=== PATIENT | female | born 2005 | race Caucasian/White ===

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

== ENCOUNTER 2025-06-16 02:53 | Inpatient (IN) | payer SELFPAY ==
[2025-06-16] VITALS (59 sets, daily range): BP systolic 104–138; BP diastolic 58–98; PULSE 56–109; RESP 16–18; TEMP 36.6–37.2; BMI 28.3
[2025-06-16 01:08] LABS: Nitrazine Paper, PH Inconclusive
[2025-06-16 02:44] LABS: Hematocrit 39.7 % (36-47); Hemoglobin 13.50 g/dL (12.4-14.8); Mean Corpuscular HGB Conc 34.0 g/dL (30-55); Mean Corpuscular Hemoglobin 31.3 pg (27-33); Mean Corpuscular Volume 91.9 fl (85-98); Nucleated Red Blood Cells % 0 %; Platelet Count 165 10^3/cmm (157-399); Red Blood Count 4.32 10^6/uL (3.85-5.65); White Blood Count 8.33 10^3/uL (4.5-13.0)
[2025-06-16 03:18] LABS: HIV 1 & 2 Antigen Non-Reactive (Non-Reactiv)
[2025-06-16 03:19] LABS: Rapid Plasma Reagin Syphilis Nonreactive (Nonreactive)
[2025-06-16 03:20] LABS: Hepatitis B Surface Antigen Non-Reactive (Nonreactive)
[2025-06-16] MEDS: penicillin g potassium 5,000,000 UNIT in sodium chloride 0.9% (plus) 100 ML 100 UNIT IV (03:20)
[2025-06-16 05:00] LABS: Neisseria Gonorrhea NOT DETECTED (Negative)
[2025-06-16 05:18] LABS: PCP Screen Urine Negative (Negative)
[2025-06-16] MEDS: PENICILLIN G POTASSIUM 2,500,000 UNIT/50 ML BAG 50 UNIT IV ×3 (07:06→14:05)
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
[2025-06-16] MEDS: fentaNYL 50 mcg/mL INJ 2mL IVP (16:38)
[2025-06-16] MEDS: oxytocin 30 UNIT/500 ML BAG 600 UNIT IV (18:39)
--- NOTE | 2025-06-16 18:47 | P.PCNOB_ITS ---
Delivery Note: Date of delivery: June 16, 2025 Pre-delivery diagnoses: 20-year-old 1 at 36 weeks estima perlita gestational age presenting with spontaneous rupture of membranes Post-delivery diagnoses: Status post spontaneous vaginal delivery Procedure: Spontaneous vaginal delivery Delivering Physician: Alberto Montgomery Estimated blood loss (mL): 150 Pre-Delivery Course: The patient presented to the hospital with spontaneous rupture of membranes. Her membranes ruptured at about 9:00 PM on the day prior to delivery. She and her desire to avoid further invention or medication if possible. As result we hold off on Cytotec for several hours. They eventually agreed to have Cytotec placed. That was followed up with another Cytotec. She gradually made progress and progressed to complete without difficulty. Delivery: DELIVERY: The patient progressed to complete without difficulty. She delivered a male with a weight 2930 g And with Apgars of 8, 9. The baby was delivered from the HENRIQUE position and placed on the mother's abdomen. The cord was then clamped and cut 1 minute after delivery. A true knot was noted. There was no nuchal cord. There was no meconium. The placenta and 3 vessel cord were delivered intact shortly thereafter. The perineum and vaginal vault were carefully examined. She had some superficial vaginal lacerations on both the left and right vaginal valdivia. No repairs were required.. Both the mother and the baby were in stable condition. Post-Delivery Status: Good History History History 1 Term Miscarriages/Ectopic Living Children A&P Assessment and plan 1. Spontaneous vaginal delivery: I anticipate routine care. 2. 36 weeks gestation of : PDMP PDMP Reviewed: Not Reviewed Coding Level of Care Code Acute Code for Chg Fwd Diagnoses Spontaneous vaginal delivery O80 36 weeks gestation of Z3A.36
[2025-06-16] MEDS: tranexamic acid 1,000 MG/100 ML PREMIX 600 MG IV (21:20)
[2025-06-16] MEDS: HYDROcodone-acetaminophen 5-325 mg Tablet PO (21:23)
[2025-06-16] MEDS: oxytocin 30 UNIT/500 ML BAG 999 UNIT (21:36)
[2025-06-17] VITALS (16 sets, daily range): BP systolic 94–135; BP diastolic 59–97; PULSE 72–92; RESP 16–17; TEMP 36.5–36.7; O2SAT 96–98
--- NOTE | 2025-06-17 01:18 | PC.NURSE ---
Patient refused to get up to use restroom at this time, this RN explained that uterus to left and firm with massage and patient will need to get up to restroom. Patient refused.
[2025-06-17] MEDS: tranexamic acid 1,000 MG/100 ML PREMIX 600 MG IV ×2 (02:43→07:26)
[2025-06-17 02:53] LABS: Hematocrit 34.0 % (36-47); Hemoglobin 11.40 g/dL (12.4-14.8); Mean Corpuscular HGB Conc 33.5 g/dL (30-55); Mean Corpuscular Hemoglobin 31.2 pg (27-33); Mean Corpuscular Volume 93.2 fl (85-98); Platelet Count 157 10^3/cmm (157-399); Red Blood Count 3.65 10^6/uL (3.85-5.65); White Blood Count 17.01 10^3/uL (4.5-13.0)
[2025-06-17] MEDS: HYDROcodone-acetaminophen 5-325 mg Tablet PO (03:02)
--- NOTE | 2025-06-17 04:19 | PC.NURSE ---
MD at bedside performing manual sweep at this time, patient moderately bleeding
--- NOTE | 2025-06-17 04:21 | PC.NURSE ---
, this RN, Radames Becerra RN, Ariadna Jung RN, and Tammie Lee HELICOPTER UTILITY AIRCREWMAN at bedside at 0323. MD performing manual sweep. Mi placed by MD at 0335. 60ml of sterile water placed in cervical balloon of Mi once MD confirmed placement. Wall suction running at 80mm HG and blood return visually verified by this RN and MD. Order received to call MD with update one hour post- Mi placement.
--- NOTE | 2025-06-17 04:44 | PC.NURSE ---
josh in at this time, fundal assessment firm, no pressure applied during assessment
[2025-06-17] MEDS: PRENATAL VIT NO.130/IRON/FOLIC 1 EACH TABLET PO (06:05)
--- NOTE | 2025-06-17 07:35 | P.PN_ITS ---
END STAPLER Subjective 2 Subjective: Interval history: The patient had a little heavier than average bleeding after delivery of the infant. The bleeding did slow down. Unfortunately, she continued to have some bleeding and passing clots throughout the night. She had multiple doses of TXA. She received Cytotec, Hemabate, and Pitocin. Ultimately, I ended up doing a bimanual exploration of her uterus and was able to remove some adherent clot. While remove most of the clot, there did appear to be a small amount of clot that was still at the fundus that I was unable to remove adequately. I then elected to place a Mi per manufacture recommendations. The did has now been in for about 3 hours. There is some blood in the tube, but overall her bleeding has been doing well since the placement of the Dyana. That has also been since I removed much of the organized clot in her uterus, so that may also be a major reason for improved bleeding. Labor: Station: +2 Amniotic Membrane Status: Ruptured Monitor Mode: External Contraction Pattern: Regular Vitals/I&O/Wt Last Vital Signs Temp 98.9 F 06/16/25 16:29 Pulse 80 06/17/25 06:47 Resp 16 06/16/25 23:57 BP 103/62 06/17/25 06:47 Pulse Ox 96 06/17/25 05:57 O2 Del Method Room Air 06/16/25 01:59 06/16/25 06/17/25 06/17/25 22:59 06:59 14:59 Intake Total 1150 / 2350 1100 / 3450 Output Total 205 / 205 1420 / 1625 Balance 945 / 2145 -320 / 1825 Weight last 48 hrs Weight 155 lb Physical Exam 2 Narrative: The patient is alert. She appears comfortable. Her heart has a regular rate and rhythm with no murmurs appreciated. Lungs are clear to auscultation bilaterally. Her fundus is firm and below the umbilicus. Data 06/17/25 02:41 A&P Assessment and plan 1. hemorrhage: I have placed the patient on TXA, I am giving her another dose of Cytotec, and putting her on Pitocin drip as well. I am going to remove the Mi in the next half hour. Depending on how she responds, we may elect to proceed with a D&C. I am hopeful that since we have her on multiple medications, and since they already removed majority of the organized clot in her uterus that she will do better this morning. If not, we will consider a D&C. I discussed the case with Dr. Candelario in case she requires further invention. PDMP PDMP Reviewed: Not Reviewed Attestations 2 Medical Necessity Statement*: I anticipate the patient will require another night stay in the hospital due to hemorrhage Coding Level of Care Code Acute Code for Chg Fwd Diagnoses hemorrhage O72.1
[2025-06-17] MEDS: oxytocin 30 UNIT/500 ML BAG 100 UNIT (07:39)
--- NOTE | 2025-06-17 08:00 | PC.NURSE ---
Dr. Montgomery at bedside to remove Mi. 60 mL of sterile water removed from balloon, Dr. Montgomery removed Mi without difficulty, pt tolerated well. Suction canister had a total of 100 mL of blood.
[2025-06-17 08:02] LABS: Hematocrit 29.4 % (36-47); Hemoglobin 10.40 g/dL (12.4-14.8); Mean Corpuscular HGB Conc 35.4 g/dL (30-55); Mean Corpuscular Hemoglobin 32.1 pg (27-33); Mean Corpuscular Volume 90.7 fl (85-98); Platelet Count 148 10^3/cmm (157-399); Red Blood Count 3.24 10^6/uL (3.85-5.65); White Blood Count 16.21 10^3/uL (4.5-13.0)
--- NOTE | 2025-06-17 21:24 | PC.NURSE ---
This RN asked patient at 2102 if she would rather be discharged this evening (06/17) or in the morning around [phone] per MD request. Patient let this RN know she is comfortable with being discharged in the morning.
--- NOTE | 2025-06-18 00:59 | PC.NURSE ---
transport team at bedside speaking with patient at this time
[2025-06-18 03:45] VITALS: BP 100/64; PULSE 79; RESP 15
[2025-06-18 06:05] VITALS: PULSE 79; RESP 15
[2025-06-18] MEDS: PRENATAL VIT NO.130/IRON/FOLIC 1 EACH TABLET PO (06:09)
[2025-06-18 06:12] VITALS: BP 103/68; PULSE 81; RESP 15
--- NOTE | 2025-06-18 08:46 | PM.OBGYDC ---
Discharge Providers STAFFING CONSULTANT Date of Admission: 06/16/25 02:53 Date of Discharge: 06/18/25 Attending Provider at Admission: Alberto Montgomery MD Attending Provider at Discharge: Alberto Montgomery MD Diagnoses at Discharge Discharge Diagnosis 1. 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 Her membranes ruptured at 36 weeks. She was then brought to the hospital for further care. She was placed on Cytotec 25 mcg x 2. She progressed to complete and had an unremarkable delivery of a healthy appearing male infant. She had minimal tearing. She had moderate bleeding initially. She continued to have bleeding after the initial phase and required multiple medications including TXA, Cytotec, Hemabate, and eventually the Mi intrauterine vacuum device. Her bleeding ultimately improved. And her bleeding has been within normal limits for over 24 hours. Information Peripartum Data: Delivery Method: Vaginal Physical Exam Narrative: The patient is alert. She appears comfortable. Her heart has a regular rate and rhythm with no murmurs appreciated. Lungs are clear to auscultation bilaterally. Her fundus is firm and below the umbilicus. History History History 1 Term Miscarriages/Ectopic Living Children Discharge Data Studies Completed and Pending Pending at discharge Category Date Time Status Group B Streptococcus Culture Routine Lab 06/16/25 02:30 Received Laboratory Results WBC 16.21 10^3/uL (4.5-13.0) H 06/17/25 07:48 RBC 3.24 10^6/uL (3.85-5.65) L 06/17/25 07:48 Hgb 10.40 g/dL (12.4-14.8) L 06/17/25 07:48 Hct 29.4 % (36-47) L 06/17/25 07:48 MCV 90.7 fl (85-98) 06/17/25 07:48 MCH 32.1 pg (27-33) 06/17/25 07:48 MCHC 35.4 g/dL (30-55) D 06/17/25 07:48 RDW 13.0 % (12.1-15.1) 06/17/25 07:48 Plt Count 148 10^3/cmm (157-399) L 06/17/25 07:48 MPV 11.4 fL (7.4-10.4) H 06/17/25 07:48 Neut % (Auto) 58.2 % 06/16/25 02:30 Lymph % (Auto) 33.4 % 06/16/25 02:30 [place] % (Auto) 5.9 % 06/16/25 02:30 Eos % (Auto) 1.9 % 06/16/25 02:30 Baso % (Auto) 0.2 % 06/16/25 02:30 Neut # (Auto) 4.85 10^3/uL (1.8-8.0) 06/16/25 02:30 Lymph # (Auto) 2.8 10^3/uL (1.5-6.5) 06/16/25 02:30 [place] # (Auto) 0.5 10^3/uL (0.2-0.9) 06/16/25 02:30 Eos # (Auto) 0.2 10^3/uL (0.0-0.8) 06/16/25 02:30 Baso # (Auto) 0.0 10^3/uL (0.0-0.1) 06/16/25 02:30 Nucleated RBC % (auto) 0 % 06/16/25 02:30 Nucleated RBCs # 0.0 /100WBC 06/16/25 02:30 Insulin-like GF I Positive 06/16/25 00:55 Fluid pH (paper) Inconclusive 06/16/25 00:58 Urine Opiates Screen Negative ng/mL (Negative) 06/16/25 03:20 Ur Barbiturates Screen Negative ng/mL (Negative) 06/16/25 03:20 Ur Phencyclidine Scrn Negative ng/mL (Negative) 06/16/25 03:20 Ur Amphetamines Screen Negative ng/mL (Negative) 06/16/25 03:20 U Benzodiazepines Scrn Negative ng/mL (Negative) 06/16/25 03:20 Urine Cocaine Screen Negative ng/mL (Negative) 06/16/25 03:20 U Marijuana (THC) Screen Negative ng/mL (Negative) 06/16/25 03:20 RPR Nonreactive (Nonreactive) 06/16/25 02:30 C. trachomatis (PCR) Not detected (Negative) 06/16/25 03:20 Hep Bs Antigen Non-reactive (Nonreactive) 06/16/25 02:30 HIV 1&2 Ab & HIV 1 Ag Non-reactive (Non-Reactiv) 06/16/25 02:30 HIV 1&2 Antibody Non-reactive (Non-Reactiv) 06/16/25 02:30 N. gonorrhoeae (PCR) Not detected (Negative) 06/16/25 03:20 Rubella IgG Antibody 0.2 IU/mL (0.0-10.0) 06/16/25 02:30 Blood Type A Positive 06/16/25 02:30 Rho(D) Type Rh positive 06/16/25 02:30 Antibody Screen Negative 06/16/25 02:30 Vitals Last Vital Signs Temp 97.7 F 06/17/25 22:52 Pulse 81 06/18/25 06:12 Resp 15 06/18/25 06:12 BP 103/68 06/18/25 06:12 Pulse Ox 96 06/17/25 17:30 O2 Del Method Room Air 06/17/25 22:52 Results Labs OB ([facility]): Blood Type A Positive 06/16/25 Antibody Screen Negative 06/16/25 Hct, (36-47) 29.4 % L 06/17/25 Hgb, (12.4-14.8) 10.40 g/dL L 06/17/25 Rho(D) Type Rh positive 06/16/25 Plt Count, (157-399) 148 10^3/cmm L 06/17/25 Hep Bs Antigen, (Nonreactive) Non-reactive 06/16/25 Rubella IgG Antibody, (0.0-10.0) 0.2 IU/mL 06/16/25 RPR, (Nonreactive) Nonreactive 06/16/25 HIV 1&2 Ab & HIV 1 Ag, (Non-Reactiv) Non-reactive 06/16/25 Ser , Semi-Qnt 756532.00 mIU/mL 12/24/24 HCG, Qual, (Negative) Negative 02/27/24 Urine Opiates Screen, (Negative) Negative ng/mL 06/16/25 Ur Barbiturates Screen, (Negative) Negative ng/mL 06/16/25 Ur Phencyclidine Scrn, (Negative) Negative ng/mL 06/16/25 Ur Amphetamines Screen, (Negative) Negative ng/mL 06/16/25 U Benzodiazepines Scrn, (Negative) Negative ng/mL 06/16/25 Urine Cocaine Screen, (Negative) Negative ng/mL 06/16/25 U Marijuana (THC) Screen, (Negative) Negative ng/mL 06/16/25 Discharge Plan Discharge Patient Disposition: Home Condition: Stable Prescriptions: Continued capsule 1 cap PO 1XD MDD 1 Discharge Order = DC NOW: Discharge Order (Routine); Ordered 06/18/25 Ordered By: Alberto Montgomery Referrals: Hansa Joya [Other] - 6 Weeks Discharge Diet: Usual diet Discharge Activity: Limit activity as instructed Patient Instructions: Depression (DC), Bleeding (DC), Preeclampsia and Eclampsia After Delivery (GEN), Hemorrhage (DC), OB Discharge Report, OB Food/Drug Interaction Guide, Opioid Safety, OB Home Care, OB Proud Parent Packet, OB Vaginal Deliveries, Patient Portal & Paige Instructions Discharge Attestations STAFFING CONSULTANT Time Spent in Discharge Care*: less than 30 min Coding Level of Care Code Acute Code for Chg Fwd Diagnoses hemorrhage O72.1
[2025-06-18 10:00] VITALS: BP 109/62; PULSE 74; RESP 16; TEMP 36.8; O2SAT 99
== END 2025-06-18 10:24 | disposition home or self-care (01) | DRG 768 ==
LOC: OPOB 02:53 → OBGYN 02:53
PROVIDERS: Admitting Provider Family Medicine; Visit Provider Family Medicine
DX: O60.14X0 Preterm labor third trimester with preterm delivery third trimester, not applicable or unspecified (principal); Z37.0 Single live birth; O72.1 Other immediate postpartum hemorrhage; Z3A.36 36 weeks gestation of pregnancy
CPT/HCPCS: 36415; 59025; 59409; 80306; 83986; 84112; 85025; 85027; 86592; 86762; 86850; 86900; 87081; 87340; 87491; 87591; 87806; 96372; 99211; J2540; J2590; J3010; J7030; J7121; J9999